=== PATIENT | female | born 1960 | race Caucasian/White ===

== ENCOUNTER → 2023-10-13 15:29 | Outpatient (REF) | payer OTHER, SELFPAY | LOC: HWWDC 15:29 | PROVIDERS: ATTENDING PHYSICIAN Obstetrics & Gynecology; FAMILY PHYSICIAN Family Medicine | DX: Z12.31 Encounter for screening mammogram for malignant neoplasm of breast (principal) | CPT/HCPCS: 77063; 77067 ==

== ENCOUNTER → 2024-10-25 15:49 | Outpatient (REF) | payer OTHER, SELFPAY | LOC: HWWDC 15:49 | PROVIDERS: ATTENDING PHYSICIAN Obstetrics & Gynecology; FAMILY PHYSICIAN Family Medicine | DX: Z12.31 Encounter for screening mammogram for malignant neoplasm of breast (principal) | CPT/HCPCS: 77063; 77067 ==

== ENCOUNTER 2025-01-05 23:10 | Inpatient (IN) | payer OTHER, SELFPAY ==
[2025-01-05 19:03] VITALS: BP 181/87
[2025-01-05 19:24] LABS: % Basophils 0.7 % (0-2); % Eosinophils 1.1 % (0-6); % Immature Granulocytes 0.2 % (0-0.5); % Lymphocytes 12.7 % (20.5-51.1); % Monocytes 12.4 % (1.7-9.3); % Neutrophils 72.9 % (42.2-75.2); Absolute Eosinophils 0.1 10^3/uL (0-0.7); Absolute Lymphocytes 0.7 10^3/uL (1.2-3.4); Absolute Monocytes 0.7 10^3/uL (0.1-0.6); Absolute Neutrophils 3.9 10^3/uL (1.4-6.5); Hematocrit 39.9 % (37.0-47.0); Hemoglobin 14.6 g/dL (12.0-16.0); Mean Corp Hgb Conc. 36.6 g/dL (33.0-37.0); Mean Corpuscular Hgb 30.4 pg (27.0-31.0); Mean Platelet Volume 9.2 fL (7.4-10.4); Nucleated Red Blood Cells % 0 %; Platelet Count 204 10^3/uL (130-400); Red Blood Cell Count 4.81 10^6/uL (4.20-5.40); Red Cell Dist. Width 11.4 % (11.5-14.5); White Blood Cell Count 5.3 10^3/uL (4.8-10.8)
[2025-01-05 19:45] LABS: Blood Urea Nitrogen 7 mg/dl (7-17); Carbon Dioxide 25 mmol/L (22-30); Chloride 87 mmol/L (98-107); Glucose 152 mg/dl (70-99); Potassium 4.4 mmol/L (3.5-5.1); Sodium 120 mmol/L (135-145); eGFR > 60.00
--- NOTE | 2025-01-05 21:23 | ED.GENMED ---
History of Present Illness
General
Chief Complaint: Weakness
Time Seen by Provider: 01/05/25 21:05
History of Present Illness
History of Present Illness:
64-year-old female presents to the emergency department for evaluation of generalized weakness and dizziness. States that last week she developed a dry cough that seems to have improved, she now reports lower back pain and cramping of her legs.
Went to urgent care prior to arrival and she had an unremarkable urinalysis as well as a negative COVID and flu. Denies any recent medication changes. No fevers or chills, denies any dyspnea. States that she simply feels overall fatigued.
Review of Systems
Review of Systems
Allergies reviewed?: Yes
All Other Systems: ROS reviewed and negative except as documented in HPI and ROS
Phy Exam
Physical Exam
Physical Exam:
GEN: Well appearing, NAD, WDWN
HEENT: Oral mucosa moist, no scleral icterus
Cardiac: Regular rate and rhythm, no murmur
Lung: No respiratory distress, no tachypnea, lungs clear to auscultation bilaterally
MSK: No gross deformity or injuries
Skin: Good color, no pallor or jaundice, no rashes
Neuro: AO x3, moves all extremities freely, cranial nerves II through XII grossly intact, no nystagmus
Psych: Calm, cooperative
Course
Orders/Labs/Results
Orders:
Orders
01/05/25 19:07
Electrocardiogram (*1) Urgent
Reason for Study: Fatigue / Weakness
EKG- Treatment ONCE
01/05/25 19:16
Basic Metabolic Panel Urgent
Complete Blood Count/With Diff Urgent
Serum Osmolality Urgent
Comment: ADD ON
TSH Urgent
Comment: ADD ON
01/05/25 21:22
Add On- LAB Urgent
Tests Added?: serum osmolality
01/05/25 21:27
Osmolality, Random Urine Urgent
Date Specimen was Collected: 01/05/25
Time Specimen was Collected: 21:25
Urine Sodium Urgent
Date Specimen was Collected: 01/05/25
Time Specimen was Collected: 21:25
01/05/25 22:05
Add On- LAB Urgent
Tests Added?: TSH
01/05/25 22:44
Admit/Transfer Patient As Directed
Co-Sign Provider:
Level of Care: Inpatient admission
Assign to:: Telemetry
Physician / Group: kathie
Diagnosis: hyponatremia
Reason for Telemetry: Arrhythmia
Date to Stop Telemetry: 01/08/25
Time to Stop Telemetry: 11:00
Reason for Hospitalization: hyponatremia
Expected length of stay greater than two midnights?: Yes
ELOS- Estimated Length of Stay in days: 2
I certify the patient meets the requirements for IP care: Yes
PRN Pain Medication Management As Directed
May give lesser potent ordered pain med per pt: Yes
preference::
Protocol:: Medication orders for pain may be administered in a
manner that supports deferring to patient preference
when the pt is:
- Requesting an ordered lesser potent pain medication.
Least to most potent pain medications are defined
as: acetaminophen < NSAID < tramadol < opioids
(morphine, oxycodone, hydromorphone).
- Requesting a lesser dose of the same medication IF
ORDERED.
- Requesting a less intrusive route of administration
if both routes are prescribed by the provider (PO <
IV).
01/05/25 22:45
Code Status As Directed
Resuscitation Status: Full Code
01/05/25 23:00
3% Sodium Chloride 250 ml [Sodium Chloride 3%] 250 ml IV ONCE
01/05/25 23:07
PRN Pain Medication Management As Directed
May give lesser potent ordered pain med per pt: Yes
preference::
Protocol:: Medication orders for pain may be administered in a
manner that supports deferring to patient preference
when the pt is:
- Requesting an ordered lesser potent pain medication.
Least to most potent pain medications are defined
as: acetaminophen < NSAID < tramadol < opioids
(morphine, oxycodone, hydromorphone).
- Requesting a lesser dose of the same medication IF
ORDERED.
- Requesting a less intrusive route of administration
if both routes are prescribed by the provider (PO <
IV).
01/06/25 00:40
Alprazolam [Xanax] 0.25 mg PO DAILYPRN PRN anxiety
01/06/25 00:40
NEPHROLOGY CONSULT Routine
Consulting Provider: Zack Farr V.
Was physician already notified: Yes
Activity As Directed
Activity Level: As Tolerated
Vital Signs As Directed
Frequency: Per unit guidelines
DX Deep Vein Thrombosis Video Routine
01/06/25 06:00
Complete Blood Count/With Diff IN AM
Comprehensive Metabolic Panel IN AM
Cortisol, Random IN AM
Levothyroxine [Synthroid] 75 mcg PO DAILY @ 0600
01/06/25 08:00
Heparin 5,000 units SC Q12
01/06/25 Dinner
Regular
At Your Request: Full Participation
Fluid Restriction: 1440 mL/day (48 oz)
01/08/25 11:00
DC Protocol for Telemetry ONCE
Abnormal Lab Results
01/05/25 01/05/25
19:16 21:27
RDW 11.4 L %
(11.5-14.5)
Absolute Lymphs (auto) 0.7 L 10^3/uL
(1.2-3.4)
Absolute Monos (auto) 0.7 H 10^3/uL
(0.1-0.6)
Lymphocytes % 12.7 L %
(20.5-51.1)
Monocytes % 12.4 H %
(1.7-9.3)
Sodium 120 L mmol/L
(135-145)
Chloride 87 L mmol/L
(98-107)
Glucose 152 H mg/dl
(70-99)
Serum Osmolality 246 L mOsm/kg
(275-300)
TSH 4.81 H uIU/ml
(0.47-4.68)
Urine Osmolality 280 L mOsm/kg
(300-900)
01/05/25 19:16
01/05/25 19:16
Vital Signs
Initial and Last Documented VS:
Initial Vital Signs
Temp Pulse Resp BP Pulse Ox
98.4 F 64 16 181/87 100
01/05/25 19:03 01/05/25 19:03 01/05/25 19:03 01/05/25 19:03 01/05/25 19:03
Last Documented Vital Signs
Temp Pulse Resp BP Pulse Ox
98.0 F 64 16 151/81 100
01/06/25 00:47 01/06/25 00:47 01/06/25 00:47 01/06/25 00:47 01/06/25 00:47
MDM/Problems Addressed
MDM/Problems Addressed:
64-year-old female presents for myriad of complaints most notably fatigue and dizziness. She is found to have a sodium of 120 which is the most likely escort car driver of her symptoms. She has no neurologic deficits at this time however case was discussed
with nephrology who encourages slow infusion of 3% saline for gradual correction. She appears euvolemic and does not have any obvious causes of medication induced SIADH, does not have a history that would suggest alcoholism or psychogenic
polydipsia as a cause, and had recent thyroid function studies in October that were normal. Will admit to the hospitalist service for further management
*Pulse Oximetry
Patient hypoxic: no
Comment: 100% on RA
*Critical Care Note
Total Time (30-74mins, 75-104mins- exclusive of procedures): 30 min
comment:
critical care time: 30 min
Critical care time was exclusive of: Separately billable procedures, treating other patients, and teaching time
Critical care was necessary to treat or prevent imminent or life-threatening deterioration of the following conditions: severe hyponatremia
Critical care time spent personally by me on the following activities:
[x] Review of old charts
[x] Obtaining history from patient or surrogate
[x] Ordering and review of the laboratory studies
[ ] Ordering and review of radiographic studies
[x] Ordering and performing treatments and interventions
[x] Patient patient's response to treatment
[x] Development of treatment plan with patient or surrogate
ED Attending Note
-
Portions of this chart may have been created with voice recognition software.� Occasional wrong word or��sound alike� substitutions may have occurred due to the inherent limitations of voice recognition software.
Discharge Plan
Departure
Patient Disposition: Admit
Date of Disposition: 01/05/25
Time of Disposition: 22:21
Admit to: Med/Surg
Presentation/result/management discussed w/ accepting MD/DO: Hospitalist
Discharge Problem:
Hyponatremia
Interventions
Interventions:
*Risk Screen - Suicide Last Done: 01/06/25 00:58
*General Assessment Last Done: 01/05/25 19:03
*Neglect/Abuse Screening Last Done: 01/05/25 19:03
*ED- Fall Risk Assessment Last Done: 01/05/25 21:26
*ED COVID-19 Vaccine History Last Done: 01/06/25 00:58
*Nursing Disposition Last Done: 01/06/25 00:44
ED- Pulmonary Assessment Last Done: 01/05/25 21:26
ED- Neurological Assessment Last Done: 01/05/25 21:26
ED- Cardiac Assessment Last Done: 01/05/25 21:26
Discharge Date and Time
Discharge Date/Time: 01/06/25 00:45
[2025-01-05 21:26] VITALS: BMI 29.2
[2025-01-05 21:27] VITALS: BP 156/94
[2025-01-05 21:50] LABS: Osmolality Urine 280 mOsm/kg (300-900)
[2025-01-05 21:52] LABS: Osmolality Serum 246 mOsm/kg (275-300)
[2025-01-05 21:58] LABS: Urine Sodium 40 mmol/L (30-90)
[2025-01-05 22:00] VITALS: BP 164/85
[2025-01-05] MEDS: SODIUM CHLORIDE 3% 250 IV (22:27)
--- NOTE | 2025-01-05 22:51 | HPS.HSE ---
Family Physician
-
Family Physician: Celio Coffey
Chief Complaint
-
muscle cramps, weakness
History of Present Illness
64-year-old female past medical history of hypothyroidism, anxiety, onychomycosis presenting with generalized weakness and dizziness. Last week she developed a dry cough with bodyaches and muscle cramping. Now she reports lower back pain cramping
in her legs. Also some dizziness. She went to urgent care prior to arrival and had unremarkable urinalysis as well as negative COVID and flu. Denies any recent changes to her medications. Denies fevers or chills, shortness of breath. She has
fatigue. She has had some decreased oral intake.. Denies any headache, blurry vision.
She drinks 64 ounces of fluids a day which she has been doing for the past year to prevent UTIs. Denies vomiting or diarrhea. Drinks alcohol occasionally.
Medical History
Past Medical History
Past Medical History: Reports Other (hypothyroidism, anxiety, onychomycosis)
Past Surgical History: Reports Other (Tonsillectomy)
Social History
Tobacco: Non-smoker
Alcohol: None
Drug: None
Family History
Family History: Not pertinent
Allergies / Home Medications
Allergies reflects when Allergies were last updated in [facility].
Home Medications with original date entered in [facility]
Allergy/Medication List:
Allergies
Allergy/AdvReac Type Severity Reaction Status Date / Time
No Known Allergies Allergy Unverified 01/05/25 19:02
Home Medications
alprazolam 0.25 mg tablet (Xanax) 0.25 mg PO PRN PRN anxiety 01/05/25
levothyroxine 75 mcg tablet 75 mcg PO DAILY 01/05/25
terbinafine HCl 250 mg tablet 250 mg PO DAILY 01/05/25
Review of Systems
-
History Source: Patient
A 12 point ROS was completed and negative except as noted: Yes
Constitutional: Reports No Symptoms
EENT: Reports No Symptoms
Respiratory: Reports No Symptoms
Cardiac: Reports No Symptoms
Abdomen/GI: Reports No Symptoms
: Reports No Symptoms
Musculoskeletal: Reports No Symptoms
Skin: Reports No Symptoms
Neurological: Reports No Symptoms
Endocrine: Reports No Symptoms
Hematologic/Lymphatic: Reports No Symptoms
Psych: Reports No Symptoms
Physical Exam
Vital Signs
Vital Signs
Temp Pulse Resp BP Pulse Ox
98.4 F 62 15 156/94 97
01/05/25 19:03 01/05/25 21:45 01/05/25 21:45 01/05/25 21:27 01/05/25 21:45
Physical Exam
General: Well Developed, Well Nourished and No Apparent Distress
HEENT: NormoCephalic, Moist mucous membranes and Atraumatic
Respiratory: Clear
Cardiac: S1/S2 and Regular Rhythm; No Murmur or Rub
GI: Soft, Non Tender, Non Distended and Normal Bowel Sounds; No Organomegaly
Rectal: Deferred by Provider
Musculoskeletal: No Clubbing, No Cyanosis and No Edema
Skin: No Rash
Neuro: Nonfocal/grossly intact
Laboratory Results
-
01/05/25 19:16
01/05/25 19:16
Data Reviewed
-
Lab Data: Labs Reviewed by me
Old Records: Reviewed
Impression/Plan
-
IMPRESSION:
PLAN:
# Symptomatic euvolemic hyponatremia suggestive of SIADH
- Sodium 120
- Urine osmolality of 280, urine sodium of 40 suggesting SIADH rather than polydipsia
- TSH pending, check a.m. cortisol
- Nephrology recommends 3% hypertonic saline
- 48 ounce fluid restriction
- Terbinafine can rarely cause SIADH, hold for now
Hypothyroidism
- Continue levothyroxine
Anxiety
Onychomycosis
-Hold terbinafine which she has been taking for a month
Full code
DVT prophylaxis-heparin
Regular diet
[2025-01-05 22:57] LABS: TSH 4.81 uIU/ml (0.47-4.68)
[2025-01-05 23:00] VITALS: BP 160/75
[2025-01-06] VITALS (9 sets, daily range): BP systolic 140–157; BP diastolic 69–81; BMI 28.7
[2025-01-06] MEDS: TYLENOL 650 MG PO ×3 (01:20→18:37)
--- NOTE | 2025-01-06 01:44 | PTCARENOTE ---
Patient arrived from the ED via stretcher at approximately 0030. Patient ambulated self from stretcher to bed - gait steady. Patient AAOx3, anxious @ times. VSS as documented. Assessment as documented. Patient w/ 3% saline running @ 20mls/hr through
LAC. Patient oriented to room. Bed in lowest position. Call menjivar within reach.
[2025-01-06 03:30] LABS: Blood Urea Nitrogen 5 mg/dl (7-17); Calcium 8.8 mg/dl (8.4-10.2); Carbon Dioxide 24 mmol/L (22-30); Chloride 92 mmol/L (98-107); Estimated Creatinine Clearance 100 ml/min; Glucose 107 mg/dl (70-99); Potassium 4.2 mmol/L (3.5-5.1); Sodium 123 mmol/L (135-145); eGFR > 60.00
[2025-01-06] MEDS: SYNTHROID 75 MCG PO (05:21)
[2025-01-06 05:46] LABS: % Basophils 0.4 % (0-2); % Eosinophils 2.3 % (0-6); % Immature Granulocytes 0.4 % (0-0.5); % Lymphocytes 15.9 % (20.5-51.1); Absolute Eosinophils 0.1 10^3/uL (0-0.7); Absolute Lymphocytes 0.8 10^3/uL (1.2-3.4); Absolute Monocytes 0.7 10^3/uL (0.1-0.6); Absolute Neutrophils 3.1 10^3/uL (1.4-6.5); Hemoglobin 14.3 g/dL (12.0-16.0); Mean Corp Hgb Conc. 35.8 g/dL (33.0-37.0); Mean Corpuscular Volume 83.9 fL (81.0-99.0); Mean Platelet Volume 9.2 fL (7.4-10.4); Nucleated Red Blood Cells % 0 %; Platelet Count 200 10^3/uL (130-400); Red Blood Cell Count 4.77 10^6/uL (4.20-5.40); Red Cell Dist. Width 11.6 % (11.5-14.5); White Blood Cell Count 4.7 10^3/uL (4.8-10.8)
[2025-01-06 06:11] LABS: ALT (SGPT) < 10 U/L (0-35); AST (SGOT) 23 U/L (14-36); Albumin 4.5 g/dl (3.5-5.0); Alkaline Phosphatase 54 U/L (38-126); Blood Urea Nitrogen 5 mg/dl (7-17); Carbon Dioxide 27 mmol/L (22-30); Chloride 93 mmol/L (98-107); Estimated Creatinine Clearance 100 ml/min; Glucose 103 mg/dl (70-99); Potassium 4.3 mmol/L (3.5-5.1); Sodium 125 mmol/L (135-145); Total Bilirubin 0.6 mg/dl (0.2-1.3); Total Protein 6.8 g/dl (6.3-8.2); eGFR > 60.00
--- NOTE | 2025-01-06 09:10 | W.PN.HOSP.TC ---
Today's Communication/Plan
-
see bold
Assessment / Plan
Assessment / Plan
HPI: 64-year-old female past medical history of hypothyroidism, anxiety, onychomycosis presenting with generalized weakness and dizziness. Last week she developed a dry cough with bodyaches and muscle cramping. Now she reports lower back pain
cramping in her legs. Also some dizziness. She went to urgent care prior to arrival and had unremarkable urinalysis as well as negative COVID and flu. Denies any recent changes to her medications. Denies fevers or chills, shortness of breath.
She has fatigue. She has had some decreased oral intake.. Denies any headache, blurry vision.
She drinks 64 ounces of fluids a day which she has been doing for the past year to prevent UTIs. Denies vomiting or diarrhea. Drinks alcohol occasionally.
# Symptomatic euvolemic hyponatremia suggestive of SIADH
Urine osmolality of 280, urine sodium of 40 suggesting SIADH rather than polydipsia
Sodium improved at 125 today, was 120 upon admission
Status post hypertonic saline
TSH 4.81
Follow-up a.m. cortisol
Hold terbinafine
Continue fluid restriction, trend sodium, await nephrology consult
Hypothyroidism
- Continue levothyroxine
Anxiety
- Continue home Xanax prn
Onychomycosis
-Hold terbinafine which she has been taking for a month
DVT prophylaxis�SCDs
Full code
Total time spent to see the patient on the floor, examine the patient, review data and lab results, discuss treatment plan with patient, nursing staff around 40 minutes.
Physical Exam
General: No acute distress
HEENT: Normocephalic, Atraumatic, EOMI, MMM
Respiratory: Clear to Auscultation bilaterally
Cardiac: Normal S1/S2, Regular Rate and Rhythm
GI: Soft, Nontender, Nondistended, Normal Bowel Sounds
Extremities: No Clubbing, Cyanosis, or Edema
Neuro: Nonfocal/Grossly Intact
Psych: Calm, Cooperative
Derm: No Visible lesions
Anticipated Discharge: 24 - 48 hours
Subjective/Interval History
-
Date of Service: January 06, 2025
Patient reports feeling tired. Denies lightheadedness, dizziness, weakness. No chest pain, no shortness of breath. No fever, no vomiting. She does have a cough.
Objective Data
-
Labs:
Laboratory Results
01/06/25 01/06/25
02:43 05:25
WBC 4.7 L
Hgb 14.3
Hct 40.0
Plt Count 200
Sodium 123 L 125 L
Potassium 4.2 4.3
Chloride 92 L 93 L
Carbon Dioxide 24 27
BUN 5 L 5 L
Creatinine 0.6 0.6
Glucose 107 H 103 H
Calcium 8.8 9.0
Total Bilirubin 0.6
AST 23
ALT < 10
Alkaline Phosphatase 54
Vital Signs:
Vital Signs
Temp Pulse Resp BP Pulse Ox
98.5 F 62 17 152/76 98
01/06/25 07:06 01/06/25 07:06 01/06/25 07:06 01/06/25 07:06 01/06/25 07:06
I&O
01/05/25 01/06/25 01/07/25
06:59 06:59 06:59
Intake Total 240 / 240
Balance 240 / 240
--- NOTE | 2025-01-06 10:16 | W.CON.NEPH ---
Consultation
-
Date/Time Consultation Requested: 01/06/25 0040
Date/Time Consultation Performed: 01/06/25 1000
Requesting Provider: Darshana Mckeon
Performing Provider: Ewa Justin
Reason for Consultation: Hyponatremia
Medical History
-
Chief Complaint: muscle cramps and weakness
History of Present Illness:
64-year-old female past medical history of hypothyroidism, anxiety, onychomycosis presenting with generalized weakness and dizziness. 1 week ago she developed a dry cough with body aches and muscle cramping, has no sick contacts or fever. Her
appetite was slightly decreased but was drinking more liquids as she would normally do. She was taking at least 6pills of ibuprofen for last 2days. She went to urgent care prior to ER and noted negative COVID and flu. She has been taking Terbinafine
for last 1 month for onychomycosis. NO CP or shortness of breath, no abd pain or n/v. She has fatigue. Denies any headache, blurry vision.
Sodium in ER noted at 120, started on HTS and repeat labs this am was at 125. She denies any past history of hypoantremia. no dysuria.
Past Medical History
hypothyroidism, anxiety, onychomycosis
Past Surgical History: Tonsilectomy
Social History
Tobacco: Non-Smoker
Alcohol: Occasional
Drug: None
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
Family History
Family History: Not Pertinent
Allergies / Home Medications
Allergy/AdvReac Type Severity Reaction Status Date / Time
No Known Allergies Allergy Unverified 01/05/25 19:02
�Medication �Instructions �Recorded �Confirmed �Type
alprazolam 0.25 mg tablet (Xanax) 0.25 mg PO PRN PRN anxiety 01/05/25 01/05/25 History
levothyroxine 75 mcg tablet 75 mcg PO DAILY Thyroid 01/05/25 01/05/25 History
terbinafine HCl 250 mg tablet 250 mg PO DAILY Antifungal 01/05/25 01/05/25 History
Review of Systems
-
All other systems: Negative unless noted
Physical Exam
Vital Signs
Vital Signs
Temp Pulse Resp BP Pulse Ox
98.5 F 62 17 152/76 98
01/06/25 07:06 01/06/25 07:06 01/06/25 07:06 01/06/25 07:06 01/06/25 07:06
Lab Results
WBC 4.7 10^3/uL (4.8-10.8) L 01/06/25 05:25
RBC 4.77 10^6/uL (4.20-5.40) 01/06/25 05:25
Hgb 14.3 g/dL (12.0-16.0) 01/06/25 05:25
Hct 40.0 % (37.0-47.0) 01/06/25 05:25
Plt Count 200 10^3/uL (130-400) 01/06/25 05:25
Potassium 4.3 mmol/L (3.5-5.1) 01/06/25 05:25
Chloride 93 mmol/L (98-107) L 01/06/25 05:25
Carbon Dioxide 27 mmol/L (22-30) 01/06/25 05:25
BUN 5 mg/dl (7-17) L 01/06/25 05:25
Creatinine 0.6 mg/dL (0.6-1.0) 01/06/25 05:25
eGFR > 60.00 01/06/25 05:25
Glucose 103 mg/dl (70-99) H 01/06/25 05:25
Calcium 9.0 mg/dl (8.4-10.2) 01/06/25 05:25
Albumin 4.5 g/dl (3.5-5.0) 01/06/25 05:25
Physical Exam
General: Awake, Alert, Oriented, AOx3, No Distress and Nontoxic
HEENT: EOMI, Anicteric, Conjunctivae Clear, Ear/Nose Intact, Facial Symmetry, Neck Supple and No JVD
Respiratory: Clear, Normal Excursion and Nonlabored Respirations
Cardiac: S1/S2 and Regular Rate/Rhythm
Breast: Deferred by me
Abdomen: Soft, Nontender and Nondistended
Skin: No Rash
Neuro: Nonfocal/Grossly Intact
Psych: Mood/afflect pleasant, Insight/judgement good and Appropriate
Data Reviewed
-
Labs: Labs Reviewed by me and Discussed with Patient
Assessment/Plan
-
IMP:
Symptomatic euvolemic hyponatremia
Hypothyroidism
Anxiety
Onychomycosis
PLan:
A/w gen weaknes and URI , labs noted sodium 120
hyponatremia-euvolemic, ADH mediated U osmo 280, U na 40-possible SIADH
sodium better at 125, repeat labs afternoon
TSH slightly up at 4.8, await cortisol
maintain FR 48 ouncs/day
if repeat sodium improves likely follow labs in am
if not try low dose samsca
BP stable
d/w pt , avoid NSAIDs
--- NOTE | 2025-01-06 10:28 | CM ---
Patient seen bedside, initial assessment completed. Patient is a 64-year-old female past medical history of hypothyroidism, anxiety, onychomycosis presenting with generalized weakness and dizziness.
Patient resides w/ her son and his girlfriend in a [facility], 3 steps to enter. Independent in all areas, no DME identified. No SNF/HC hx reported.
Address, point of contact and insurance verified
PCP: Celio Coffey
Pharmacy: [facility]
Nephrology consulted
Plan: Anticipate home, no needs
[2025-01-06 16:09] LABS: Sodium 130 mmol/L (135-145)
[2025-01-06] MEDS: XANAX 0.25 MG PO (18:35)
[2025-01-06 20:18] LABS: Cortisol, Random 17.7 ug/dl
[2025-01-07 03:37] VITALS: BP 132/71
[2025-01-07] MEDS: SYNTHROID 75 MCG PO (05:29)
[2025-01-07 06:15] LABS: Blood Urea Nitrogen 13 mg/dl (7-17); Calcium 9.4 mg/dl (8.4-10.2); Carbon Dioxide 26 mmol/L (22-30); Chloride 97 mmol/L (98-107); Estimated Creatinine Clearance 86 ml/min; Glucose 98 mg/dl (70-99); Potassium 4.5 mmol/L (3.5-5.1); Sodium 130 mmol/L (135-145); eGFR > 60.00
[2025-01-07 07:00] VITALS: BP 148/73
[2025-01-07] MEDS: TYLENOL 650 MG PO (08:26)
--- NOTE | 2025-01-07 08:50 | W.PN.HOSP.TC ---
Today's Communication/Plan
-
Cleared by nephrology for discharge today.
Assessment / Plan
Assessment / Plan
HPI: 64-year-old female past medical history of hypothyroidism, anxiety, onychomycosis presenting with generalized weakness and dizziness. Last week she developed a dry cough with bodyaches and muscle cramping. Now she reports lower back pain
cramping in her legs. Also some dizziness. She went to urgent care prior to arrival and had unremarkable urinalysis as well as negative COVID and flu. Denies any recent changes to her medications. Denies fevers or chills, shortness of breath.
She has fatigue. She has had some decreased oral intake.. Denies any headache, blurry vision.
She drinks 64 ounces of fluids a day which she has been doing for the past year to prevent UTIs. Denies vomiting or diarrhea. Drinks alcohol occasionally.
#Symptomatic euvolemic hyponatremia suggestive of SIADH
Urine osmolality of 280, urine sodium of 40 suggesting SIADH rather than polydipsia
Sodium improved at 130, was 125, was 120 upon admission, status post hypertonic saline
TSH 4.81, am cortisol normal at 1.7
Medically stable and cleared by nephrology for discharge
Nephrology states okay to resume terbinafine upon discharge
Continue 48 ounce fluid restriction upon discharge, needs repeat BMP on 01/09�paper prescription given
Follow-up with PCP in 1 week
Hypothyroidism
- Continue levothyroxine
Anxiety
- Continue home Xanax prn
Onychomycosis
-Hold terbinafine which she has been taking for a month
DVT prophylaxis�SCDs
Full code
Physical Exam
General: No acute distress
HEENT: Normocephalic, Atraumatic, EOMI, MMM
Respiratory: Clear to Auscultation bilaterally
Cardiac: Normal S1/S2, Regular Rate and Rhythm
GI: Soft, Nontender, Nondistended, Normal Bowel Sounds
Extremities: No Clubbing, Cyanosis, or Edema
Neuro: Nonfocal/Grossly Intact
Psych: Calm, Cooperative
Derm: No Visible lesions
Anticipated Discharge: Today
Subjective/Interval History
-
Date of Service: January 07, 2025
Feels well. Has a slight cough, denies shortness of breath. Denies nausea, vomiting. No lightheadedness or dizziness with walking. No fever. Eager for discharge today.
Objective Data
-
Labs:
Laboratory Results
01/07/25
05:27
Sodium 130 L
Potassium 4.5
Chloride 97 L
Carbon Dioxide 26
BUN 13
Creatinine 0.7
Glucose 98
Calcium 9.4
Vital Signs:
Vital Signs
Temp Pulse Resp BP Pulse Ox
98.1 F 67 20 148/73 99
01/07/25 07:00 01/07/25 07:00 01/07/25 07:00 01/07/25 07:00 01/07/25 07:00
I&O
01/06/25 01/07/25 01/08/25
06:59 06:59 06:59
Intake Total 240 / 240 1420 / 1420
Balance 240 / 240 1420 / 1420
[2025-01-07 10:01] VITALS: BP 131/66
--- NOTE | 2025-01-07 11:02 | W.PN.NEPH.PH ---
Today's Communication / Plan
-
ok for d/c
Assessment/Plan
-
IMP:
Symptomatic euvolemic hyponatremia
Hypothyroidism
Anxiety
Onychomycosis
PLan:
A/w gen weaknes and URI , labs noted sodium 120
hyponatremia-euvolemic, ADH mediated U osmo 280, U na 40-possible SIADH
sodium better at 130
TSH slightly up at 4.8, normal cortisol
maintain FR 48 ounces/day
BP slightly up here-recommend to monitor at home
ok to d/.c and BMP end of the week with PCP
d/w pt , avoid NSAIDs
-
-
Date of Service: January 07, 2025
CC / HPI / ROS
-
Chief Complaint:
hyponatremia
History of Present Illness:
sodium better at 130
bp stable but high most of the time no h/o HTN
no fever
Review of Systems:
no n/v
no pain
feels well, no sob
Labs
-
Labs:
WBC 4.7 10^3/uL (4.8-10.8) L 01/06/25 05:25
RBC 4.77 10^6/uL (4.20-5.40) 01/06/25 05:25
Hgb 14.3 g/dL (12.0-16.0) 01/06/25 05:25
Hct 40.0 % (37.0-47.0) 01/06/25 05:25
Plt Count 200 10^3/uL (130-400) 01/06/25 05:25
Sodium 130 mmol/L (135-145) L 01/07/25 05:27
Potassium 4.5 mmol/L (3.5-5.1) 01/07/25 05:27
Chloride 97 mmol/L (98-107) L 01/07/25 05:27
Carbon Dioxide 26 mmol/L (22-30) 01/07/25 05:27
BUN 13 mg/dl (7-17) 01/07/25 05:27
Creatinine 0.7 mg/dL (0.6-1.0) 01/07/25 05:27
eGFR > 60.00 01/07/25 05:27
Glucose 98 mg/dl (70-99) 01/07/25 05:27
Calcium 9.4 mg/dl (8.4-10.2) 01/07/25 05:27
Albumin 4.5 g/dl (3.5-5.0) 01/06/25 05:25
Physical Exam
-
Vital Signs:
Vital Signs
Temp Pulse Resp BP Pulse Ox
97.9 F 67 20 131/66 98
01/07/25 10:01 01/07/25 10:01 01/07/25 10:01 01/07/25 10:01 01/07/25 10:41
Cardiovascular:: Regular rate and rhythm
Respiratory:: Bilateral: CTA
Lung Excursion:: Normal
Extremity Edema:: None: Bilateral:
Yancey Catheter: No
--- NOTE | 2025-01-07 11:10 | CM ---
CM following re: discharge planning.
Reviewed pt's chart, met with pt.
Discharge order noted. Pt is aware and she stated her neighbor is coming to transport her home.
Pt stated she lives with son 2SH and is independent in all areas [facility] UN[facility] NURSE. pt stated her son works and cannot transport her that's why her neighbor will transport.
No after care VN services indicated.
D/c plan: home no needs. Neighbor to transport.
--- NOTE | 2025-01-07 14:35 | W.DCSUMMARY ---
Discharge Summary
Discharge Data
Date of Admission: 01/05/25
Date of Discharge: 01/07/25
-
Pending Results: No
Hospital Course
Discharge diagnosis:
Symptomatic euvolemic hyponatremia
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
Hypothyroidism
Anxiety
Onychomycosis
Consults: Nephrology
Hospital course:
64-year-old female with a past medical history of hypothyroidism, anxiety, and onychomycosis was admitted for symptomatic euvolemic hyponatremia. Her sodium was 120 upon admission. She was seen in conjunction with nephrology, and treated with
fluid restriction and hypertonic saline. Her urine studies were suggestive of possible SIADH. Her sodium improved to 130 on the day of discharge. Nephrology recommends patient continue her 48 ounce fluid restriction upon discharge. Patient needs
a repeat BMP on 01/09/2025, a paper lab slip was provided. She needs to follow-up with her primary care provider in 1 week.
Disposition: Home with home care
Discharge planning: Required 37 minutes
Discharge Plan
-
Patient Disposition: Home (Routine Discharge)
Discharge Diagnosis/Procedures: Acute hyponatremia, anxiety, hypothyroidism
Diet: Regular and Restrict fluids to 48 oz
Activity: As tolerated
Driving Restrictions: As prior to admission
Blood Work: BMP on 01/09 - paper script provided
Activity Restrictions/Additional Instructions:
Your sodium was 120, very low due to drinking too much water.
Nephrology recommends you adhere to a 48 ounce fluid restriction.
Get your blood work done on 01/09, and follow-up with your PCP in 1 week.
Referrals:
Celio Coffey MD [Family Provider, Family Practice] - in one week
Prescriptions:
Continued
levothyroxine 75 mcg Tablet
75 mcg PO DAILY
alprazolam [Xanax] 0.25 mg Tablet
0.25 mg PO PRN PRN (Reason: anxiety)
terbinafine HCl 250 mg Tablet
250 mg PO DAILY
Discharge Orders:
Discharge Patient (As Directed); Ordered 01/07/25
Ordered By: Boston Francis
Discharge Date and Time
Discharge Date/Time: 01/07/25 11:16
Print Language: SAMMARINESE
== END 2025-01-07 11:16 | disposition home or self-care (01) | DRG 645 ==
LOC: 2 NORTH 23:10
PROVIDERS: Physician Assistant; Registered Nurse; Student in an Organized Health Care Education/Training Program; ADMITTING PHYSICIAN Hospitalist; ATTENDING PHYSICIAN Family Medicine; EMERGENCY PHYSICIAN Emergency Medicine; FAMILY PHYSICIAN Family Medicine; OTHER PHYSICIAN Internal Medicine
DX: E22.2 Syndrome of inappropriate secretion of antidiuretic hormone (principal); E03.9 Hypothyroidism, unspecified; F41.9 Anxiety disorder, unspecified; B35.1 Tinea unguium; J06.9 Acute upper respiratory infection, unspecified; Z79.890 Hormone replacement therapy
CPT/HCPCS: 80048; 80053; 82533; 83930; 83935; 84295; 84300; 84443; 85025; 93005; 99291